=== PATIENT | male | born 1995 | race Caucasian/White ===

== ENCOUNTER 2023-12-29 12:34 | Emergency (ER) | payer OTHER ==
[~2023-12-29] VITALS: Ht 167.6 cm; Wt 113.4 kg
[2023-12-29 12:43] VITALS: BP_SYST 138; PULSE 91; RESP 18; TEMP 98.3; O2SAT 98
[2023-12-29] MEDS ORDERED: IBUP-1971 PO (13:25)
[2023-12-29 13:41] VITALS: BP_SYST 124; PULSE 111; RESP 18; TEMP 98.6; O2SAT 96
== END 2023-12-29 13:42 | disposition home or self-care (01) ==
LOC: SED 12:34
DX: S93.401A Sprain of unspecified ligament of right ankle, initial encounter (principal); Z79.899 Other long term (current) drug therapy; W10.8XXA Fall (on) (from) other stairs and steps, initial encounter; Y93.89 Activity, other specified; Y92.89 Other specified places as the place of occurrence of the external cause; Y99.8 Other external cause status
CPT/HCPCS: 99283